=== PATIENT | female | born 1955 | race Caucasian/White ===

== ENCOUNTER 2018-07-28 15:36 | Emergency (ER) | payer OTHER ==
[2018-07-28 15:54] VITALS: TEMP 98.1
[2018-07-28] MEDS ORDERED: KETOROLAC 30 MG/ML 1 ML VIAL IVP STA (16:51)
[2018-07-28] MEDS ORDERED: ONDANSETRON 4 MG/2 ML VIAL IVP STA (16:51)
[2018-07-28] MEDS ORDERED: SODIUM CHLORIDE 0.9% 1,000 ML IV STA (16:51)
--- NOTE | 2018-07-28 16:53 | ED ---
General Adult HPI - General Chief complaint: Abdominal Pain Stated complaint: poss kidney stones Time Seen by Provider: 07/28/18 16:31 Source: patient, RN notes reviewed Mode of arrival: ambulatory Limitations: no limitations - History of Present Illness Initial comments: 62-year-old female with a past medical history of hypertension and kidney stones presents to the emergency department for a chief complaint of suprapubic pain times one day. Patient states she has had kidney stones for the past 3 years. She states her 0 started as left flank pain and side pain however she has not had this type of pain recently. Patient only has suprapubic pain. She denies dysuria, urinary frequency, urinary urgency. Patient does admit to hematuria. She denies fevers or chills. She states she was on antibiotics 3 weeks ago for a urinary tract infection which has since resolved. She admits to nausea and has vomited multiple times. She states bowel movements have been normal. She denies any other abdominal pain. Patient has no other complaints at this time including shortness of breath, chest pain, headache, or visual changes. - Related Data Home Medications Medication Instructions Recorded Confirmed Ibuprofen [Motrin Ib] 400 mg PO Q6HR PRN 07/28/18 07/28/18 Losartan Potassium 100 mg PO DAILY 07/28/18 07/28/18 Naproxen Sodium [Aleve] 220 mg PO DAILY PRN 07/28/18 07/28/18 amLODIPine [Norvasc] 10 mg PO DAILY 07/28/18 07/28/18 Previous Rx's Medication Instructions Recorded Cephalexin [Keflex] 500 mg PO Q8H 7 Days cap 07/28/18 Allergies Allergy/AdvReac Type Severity Reaction Status Date / Time Iodinated Contrast- Oral and Allergy Anaphylaxis Verified 07/28/18 16:59 IV Dye Review of Systems ROS Statement: Those systems with pertinent positive or pertinent negative responses have been documented in the HPI. ROS Other: All systems not noted in ROS Statement are negative. Past Medical History Past Medical History: Hypertension Additional Past Medical History / Comment(s): kidney stones History of Any Multi-Drug Resistant Organisms: None Reported Past Surgical History: Hysterectomy, Tonsillectomy Additional Past Surgical History / Comment(s): right ear drum, plantar fasciatis Past Psychological History: No Psychological Hx Reported Smoking Status: Never smoker Past Alcohol Use History: None Reported Past Drug Use History: None Reported General Exam Limitations: no limitations General appearance: alert, in no apparent distress Head exam: Present: atraumatic, normocephalic, normal inspection Eye exam: Present: normal appearance, PERRL, EOMI. Absent: scleral icterus, conjunctival injection, periorbital swelling ENT exam: Present: normal exam, mucous membranes moist Neck exam: Present: normal inspection, full ROM. Absent: tenderness, meningismus, lymphadenopathy Respiratory exam: Present: normal lung sounds bilaterally. Absent: respiratory distress, wheezes, rales, rhonchi, stridor Cardiovascular Exam: Present: regular rate, normal rhythm, normal heart sounds. Absent: systolic murmur, diastolic murmur, rubs, gallop, clicks GI/Abdominal exam: Present: soft, tenderness (mild suprapubic tenderness, no tenderness elsewhere in the abdomen. Negative Sales sign, negative obturator sign), normal bowel sounds. Absent: distended, guarding, rebound, rigid Back exam: Absent: CVA tenderness (R), CVA tenderness (L) Neurological exam: Present: alert, oriented X3, CN II-XII intact Psychiatric exam: Present: normal affect, normal mood Course Vital Signs 07/28/18 07/28/18 15:51 18:29 Temperature 98.1 F Pulse Rate 75 77 Respiratory 18 20 Rate Blood Pressure 147/75 126/89 O2 Sat by Pulse 97 99 Oximetry Medical Decision Making - Medical Decision Making 62-year-old female with history of kidney stones presents to the emergency department for pain over the suprapubic area. Patient states this episode of pain has been for about one day. Patient states this has however been ongoing for years and comes and goes every few months. She states she was just put on antibiotics last month for urinary tract infection at Dr. Singleton's office. Patient admits to hematuria. On exam she is well appearing. Vitals are stable. She does have suprapubic tenderness without tenderness also where in the abdomen CBC and CMP are unremarkable. Urine does show small blood with 28 red blood cells. There is large leukocyte esterase with 45 white cells. However there are many squamous epithelial cells in the sample. CT did show a large obstructing calculus at the left UPJ with severe hydronephrosis and mild renal atrophy consistent with chronic obstruction. Calculus is 11 mm. Bladder distends smoothly and there is no free fluid in the pelvis. I discussed with patient that this pain may be associated with urinary tract infection, chronic kidney stone, or another etiology. I discussed that patient must follow-up with urology for lithotripsy as well as further evaluation of bladder as she could have chronic cystitis or may need biopsy. Patient states she has not followed up in the past few months because of her insurance but states she is getting insurance and will be able to follow-up. She will take her antibiotic for possible urinary tract infection and I did discuss following up for results of culture. I discussed following up with Dr singleton and returning here if she has any worsening symptoms. This was given both in writing and verbally. Patient voices understanding. This case was discussed with Dr. Calle - Lab Data Result diagrams: 07/28/18 17:15 07/28/18 17:15 Lab Results 07/28/18 07/28/18 07/28/18 Range/Units 17:15 17:15 17:15 WBC 6.5 (3.8-10.6) k/uL RBC 5.36 (3.80-5.40) m/uL Hgb 14.7 (11.4-16.0) gm/dL Hct 46.0 (34.0-46.0) % MCV 85.7 (80.0-100.0) fL MCH 27.3 (25.0-35.0) pg MCHC 31.9 (31.0-37.0) g/dL RDW 13.2 (11.5-15.5) % Plt Count 233 (150-450) k/uL Neutrophils % 73 % Lymphocytes % 17 % Monocytes % 5 % Eosinophils % 2 % Basophils % 1 % Neutrophils # 4.8 (1.3-7.7) k/uL Lymphocytes # 1.1 (1.0-4.8) k/uL Monocytes # 0.4 (0-1.0) k/uL Eosinophils # 0.1 (0-0.7) k/uL Basophils # 0.0 (0-0.2) k/uL Sodium 138 (137-145) mmol/L Potassium 4.2 (3.5-5.1) mmol/L Chloride 106 (98-107) mmol/L Carbon Dioxide 21 L (22-30) mmol/L Anion Gap 11 mmol/L BUN 14 (7-17) mg/dL Creatinine 0.80 (0.52-1.04) mg/dL Est GFR (CKD-EPI)AfAm >90 (>60 ml/min/1.73 sqM) Est GFR (CKD-EPI)NonAf 78 (>60 ml/min/1.73 sqM) Glucose 127 H (74-99) mg/dL Calcium 9.1 (8.4-10.2) mg/dL Total Bilirubin 1.8 H (0.2-1.3) mg/dL AST 28 (14-36) U/L ALT 19 (9-52) U/L Alkaline Phosphatase 64 (38-126) U/L Total Protein 7.5 (6.3-8.2) g/dL Albumin 4.0 (3.5-5.0) g/dL Amylase 58 (30-110) U/L Lipase 95 (23-300) U/L Urine Color Yellow Urine Appearance Cloudy H (Clear) Urine pH 6.5 (5.0-8.0) Ur Specific [place] 1.016 (1.001-1.035) Urine Protein 1+ H (Negative) Urine Glucose (UA) Negative (Negative) Urine Ketones 1+ H (Negative) Urine Blood Small H (Negative) Urine Nitrite Negative (Negative) Urine Bilirubin Negative (Negative) Urine Urobilinogen <2.0 (<2.0) mg/dL Ur Leukocyte Esterase Large H (Negative) Urine RBC 28 H (0-5) /hpf Urine WBC 45 H (0-5) /hpf Ur Squamous Epith Cells 20 H (0-4) /hpf Hyaline Casts 6 H (0-2) /lpf Urine Mucus Many H (None) /hpf Disposition Clinical Impression: Nephrolithiasis Disposition: HOME SELF-CARE Condition: Good Instructions: Kidney Stones (ED), Lithotripsy (DC), Urinary Tract Infection in Women (ED) Additional Instructions: Please follow up with urology in 1-2 days. As discussed need additional testing for pain in the bladder as well as treatment of your chronic kidney stone. Please take antibiotics as directed. Follow up for culture results as discussed. Return here if you have any worsening symptoms. Prescriptions: Cephalexin [Keflex] 500 mg PO Q8H 7 Days cap Is patient prescribed a controlled substance at d/c from ED?: No Referrals: Regina Singleton MD [Primary Care Provider] - 1-2 days Sixto Thompson MD [STAFF PHYSICIAN] - 1-2 days Time of Disposition: 18:55
[2018-07-28 17:31] LABS: Basophils % (A) 1 %; Eosinophils # (A) 0.1 k/uL (0-0.7); Eosinophils % (A) 2 %; HGB 14.7 gm/dL (11.4-16.0); Lymphocytes # (A) 1.1 k/uL (1.0-4.8); Lymphocytes % (A) 17 %; MCH 27.3 pg (25.0-35.0); MCHC 31.9 g/dL (31.0-37.0); MCV 85.7 fL (80.0-100.0); Mean Platelet Volume 6.5; Monocytes # (A) 0.4 k/uL (0-1.0); Monocytes % (A) 5 %; Neutrophils # (A) 4.8 k/uL (1.3-7.7); Neutrophils % (A) 73 %; Platelet Count 233 k/uL (150-450); RBC 5.36 m/uL (3.80-5.40); RDW 13.2 % (11.5-15.5); WBC 6.5 k/uL (3.8-10.6)
[2018-07-28 17:35] LABS: Appearance,Urine Cloudy (Clear); Bilirubin,Urine Negative (Negative); Blood,Urine Small (Negative); Color,Urine Yellow; Glucose,Urine (UA) Negative (Negative); Hyaline Casts,Urine 6 /lpf (0-2); Ketones,Urine 1+ (Negative); Leukocyte Esterase,Urine Large (Negative); Mucus,Urine Many /hpf; Nitrite,Urine Negative (Negative); PH, Urine 6.5 (5.0-8.0); Protein,Urine 1+ (Negative); RBC,Urine 28 /hpf (0-5); Specific Gravity,Urine 1.016 (1.001-1.035); Squamous Epithelial Cell,Urine 20 /hpf (0-4); Urobilinogen,Urine <2.0 mg/dL (<2.0); WBC,Urine 45 /hpf (0-5)
[2018-07-28 17:40] LABS: ALT 19 U/L (9-52); AST 28 U/L (14-36); Alkaline Phosphatase 64 U/L (38-126); Amylase 58 U/L (30-110); Anion Gap 11 mmol/L; Blood Urea Nitrogen 14 mg/dL (7-17); Calcium 9.1 mg/dL (8.4-10.2); Carbon Dioxide 21 mmol/L (22-30); Chloride 106 mmol/L (98-107); Glucose 127 mg/dL (74-99); Lipase 95 U/L (23-300); Potassium 4.2 mmol/L (3.5-5.1); Sodium 138 mmol/L (137-145); Total Bilirubin 1.8 mg/dL (0.2-1.3); Total Protein 7.5 g/dL (6.3-8.2)
--- NOTE | 2018-07-28 18:03 | CT ---
EXAMINATION TYPE: CT abdomen pelvis wo con DATE OF EXAM: 07/28/2018 COMPARISON: None HISTORY: Abdominal pain, hx of kidney stones CT DLP: 927.6 mGycm Automated exposure control for dose reduction was used. TECHNIQUE: Helical acquisition of images was performed from the lung bases through the pelvis. FINDINGS: There is subsegmental atelectasis at the lung bases. There is no pleural effusion. Heart size is norm al. There is small hiatal hernia. Stomach is otherwise normal. Liver spleen pancreas gallbladder appe ar normal. Bile ducts are not dilated. There is no adrenal mass. There is severe left-sided hydronephrosis. There is a 11 mm calculus at the left ureteropelvic juncti on. There is left side renal cortical thinning. Right kidney shows no hydronephrosis. Right kidney lowe s normal size and contour. There is no retroperitoneal adenopathy. Bladder distends smoothly. There is no inguinal hernia. There are small inguinal lymph nodes. There i s no free fluid in the pelvis. Appendix appears normal. There is broad-based umbilical hernia that co ntains fat. There is no mesenteric edema or adenopathy. There are scattered colonic diverticula. Ther e is no evidence of diverticulitis. There is no intestinal wall thickening. There is no evidence of b owel obstruction. There is L5-S1 first-degree spondylolisthesis. There is L5 spondylolysis. IMPRESSION: LARGE OBSTRUCTING CALCULUS AT THE LEFT URETEROPELVIC JUNCTION WITH SEVERE HYDRONEPHROSIS. LEFT MILD R ENAL ATROPHY CONSISTENT WITH CHRONIC OBSTRUCTION. NORMAL APPENDIX.
[2018-07-28 18:30] VITALS: BP 126/89; PULSE 77; RESP 20
[2018-07-28] MEDS ORDERED: MORPHINE SULFATE 4 MG/ML SYRINGE IVP STA (18:33)
== END 2018-07-28 19:20 | disposition home or self-care (01) ==
LOC: EC 15:36
DX: N13.2 Hydronephrosis with renal and ureteral calculous obstruction (principal); N26.1 Atrophy of kidney (terminal); I10 Essential (primary) hypertension; Z90.710 Acquired absence of both cervix and uterus; Z79.899 Other long term (current) drug therapy; Z91.041 Radiographic dye allergy status
CPT/HCPCS: 36415; 80053; 82150; 83690; 85025; 81001; 87086; 74176; 99284; 96374; 96375 ×2; 96361; J2270; J2405; J1885